=== PATIENT | female | born 2000 | race American Indian/Alaskan Native ===

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

== ENCOUNTER 2022-03-05 00:37 | Emergency (ER) | payer MEDICAID | END 2022-03-05 02:03 | disposition left against medical advice (07) | LOC: ED 00:37 | DX: R11.10 Vomiting, unspecified (principal); Z53.21 Procedure and treatment not carried out due to patient leaving prior to being seen by health care provider ==